=== PATIENT | female | born 1960 | race Caucasian/White ===

== ENCOUNTER 2020-12-11 18:22 | Observation (INO) | payer BC ==
[2020-12-11 19:47] LABS: SARS-CoV-2 NAA Rapid Test Not Detected (NotDetected)
[2020-12-11] MEDS ORDERED: Acetaminophen 325 MG TAB PO PRN (21:20)
[2020-12-11] MEDS ORDERED: Senokot S 8.6-50 MG TAB PO PRN (21:20)
[2020-12-12] MEDS: HYDROcodone/Acetaminophen 7.5/325 mg Tablet PO PRN ×2 (00:15→15:41)
[2020-12-12] MEDS: Cefepime 2 GM in Sodium Chloride 0.9% 100 ML IVPB SCH ×3 (00:15→15:41)
[2020-12-12] MEDS: Lactated Ringer's 1,000 ML IV SCH ×2 (00:16→15:41)
[2020-12-12 03:09] VITALS: BMI 21.1
[2020-12-12 05:49] LABS: #Basophils 0.1 10x3/uL (0.0-0.2); #Eosinphils 0.1 10x3/uL (0.0-0.5); #Monocytes 0.7 10x3/uL (0.0-1.1); #Neutrophils 10.3 10x3/uL (1.5-8.4); %Basophils 0.6 % (0.0-2.0); %Eosinophils 0.5 % (0.0-6.0); %Lymphocytes 12.9 % (18.0-47.0); %Monocytes 5.7 % (0.0-10.0); %Neutrophils 79.8 % (40.0-75.0); Hemoglobin 10.4 g/dL (12.0-15.5); Mean Corpuscular Hemoglobin 32.5 pg (27.0-33.0); Mean Corpuscular Volume 95.6 fl (81.6-98.3); Platelet Count 186 10x3/uL (150-450); RBC Distribution Width 13.2 % (11.5-14.5); White Blood Cell (WBC) Count 12.9 10x3/uL (3.5-10.5)
[2020-12-12 05:50] LABS: Anion Gap 12 mmol/L (10-20); BUN (Urea Nitrogen) 20 mg/dL (9.8-20.1); Calc. Creatinine Clearance 64 mL/min (70-130); Calcium 9.2 mg/dL (7.8-10.44); Carbon Dioxide 16 mmol/L (22-29); Chloride 115 mmol/L (98-107); Glucose 74 mg/dL (70-105); Magnesium 1.5 mg/dL (1.6-2.6); Sodium 139 mmol/L (136-145)
[2020-12-12] MEDS: Vancomycin HCl 750 MG in Sodium Chloride 0.9% 250 ML 250 ML IVPB SCH ×2 (08:27→21:25)
[2020-12-12] MEDS: Enoxaparin Sodium 40 MG/0.4 ML SYRINGE SC SCH (08:27)
[2020-12-12] MEDS ORDERED: Vancomycin HCl 1 GM in Sodium Chloride 0.9% 250 ML 300 ML IVPB SCH (17:00)
[2020-12-12] MEDS: cefTRIAXone\\ROCEPHIN 1 GM in Sodium Chloride 0.9% 100 ML IVPB SCH (18:00)
[2020-12-12] MEDS: Azithromycin 500 MG in Sodium Chloride 0.9% 250 ML 250 ML IVPB SCH (18:00)
[2020-12-12] MEDS: HYDROcodone/Acetaminophen 5/325 mg Tablet PO PRN (21:41)
[2020-12-13] MEDS ORDERED: Guaifenesin DM 100-10/5 ML UDCUP PO PRN (00:16)
[2020-12-13 01:32] LABS: Legionella Urinary Ag Negative (Negative); Strep pneumo Urine Ag NEGATIVE (NEGATIVE)
[2020-12-13 07:19] LABS: Vancomycin, Trough 11.2 ug/mL
[2020-12-13 07:21] LABS: #Eosinphils 0.3 10x3/uL (0.0-0.5); #Monocytes 0.6 10x3/uL (0.0-1.1); #Neutrophils 3.9 10x3/uL (1.5-8.4); %Basophils 0.7 % (0.0-2.0); %Eosinophils 5.4 % (0.0-6.0); %Lymphocytes 18.9 % (18.0-47.0); %Monocytes 10.4 % (0.0-10.0); %Neutrophils 64.3 % (40.0-75.0); Hemoglobin 10.1 g/dL (12.0-15.5); Mean Corpuscular HGB CONC 34.4 g/dL (32.0-36.0); Mean Corpuscular Hemoglobin 32.4 pg (27.0-33.0); Mean Corpuscular Volume 94.2 fl (81.6-98.3); Mean Platelet Volume 9.9 fl (7.4-10.4); Platelet Count 152 10x3/uL (150-450); RBC Distribution Width 13.2 % (11.5-14.5); Red Blood Cell (RBC) Count 3.12 10x6/uL (3.90-5.03); White Blood Cell (WBC) Count 6.1 10x3/uL (3.5-10.5)
[2020-12-13] MEDS: Vancomycin HCl 750 MG in Sodium Chloride 0.9% 250 ML 250 ML IVPB SCH (07:24)
[2020-12-13] MEDS: Enoxaparin Sodium 40 MG/0.4 ML SYRINGE SC SCH (07:24)
[2020-12-13 07:25] LABS: ALT (SGPT) 15 U/L (8-55); AST (SGOT) 18 U/L (5-34); Albumin 3.4 g/dL (3.5-5.0); Alkaline Phosphatase 66 U/L (40-110); Anion Gap 13 mmol/L (10-20); BUN (Urea Nitrogen) 12 mg/dL (9.8-20.1); Bilirubin, Total 0.6 mg/dL (0.2-1.2); Calc. Creatinine Clearance 77 mL/min (70-130); Calcium 9.4 mg/dL (7.8-10.44); Carbon Dioxide 19 mmol/L (22-29); Chloride 113 mmol/L (98-107); Globulin 2.3 g/dL (2.4-3.5); Glucose 85 mg/dL (70-105); Potassium 3.7 mmol/L (3.5-5.1); Protein, Total 5.7 g/dL (6.0-8.3); Sodium 141 mmol/L (136-145)
[2020-12-13] MEDS: HYDROcodone/Acetaminophen 5/325 mg Tablet PO PRN ×3 (07:38→23:45)
[2020-12-13] MEDS: Azithromycin 500 MG in Sodium Chloride 0.9% 250 ML 250 ML IVPB SCH (16:59)
[2020-12-13] MEDS: cefTRIAXone\\ROCEPHIN 1 GM in Sodium Chloride 0.9% 100 ML IVPB SCH (20:23)
[2020-12-13] MEDS: Vancomycin HCl 1 GM in Sodium Chloride 0.9% 250 ML 250 ML IVPB SCH (20:24)
[2020-12-14] MEDS: Vancomycin HCl 1 GM in Sodium Chloride 0.9% 250 ML 250 ML IVPB SCH (07:26)
[2020-12-14] MEDS: Enoxaparin Sodium 40 MG/0.4 ML SYRINGE SC SCH (07:26)
[2020-12-14] MEDS: HYDROcodone/Acetaminophen 5/325 mg Tablet PO PRN (07:33)
[2020-12-14 07:37] VITALS: BP 133/86; TEMP 98
== END 2020-12-14 10:12 | disposition home or self-care (01) ==
LOC: CSHERS 18:22 → CSHTELE 21:25 → INTOOBSV 21:25
PROVIDERS: ADMIT Student in an Organized Health Care Education/Training Program; ATTEND Family Medicine
DX: A41.9 Sepsis, unspecified organism (principal); I12.9 Hypertensive chronic kidney disease with stage 1 through stage 4 chronic kidney disease, or unspecified chronic kidney disease; N18.9 Chronic kidney disease, unspecified; Z20.822 Contact with and (suspected) exposure to COVID-19
CPT/HCPCS: 0240U; 36415; 71260; 74177; 80048; 80053; 80202; 83735; 84145; 85025; 87449; 87899; 93005; 96365; 96366; 96372; 96375; 96376; G0378; J0456; J0692; J0696; J1650; J1956; J3370; J3490; J7050; J7120

== ENCOUNTER 2021-09-29 14:52 | Inpatient (IN) | payer BC ==
[2021-09-29] MEDS ORDERED: Norepinephrine 8 MG/0.9% NS 250 ML ONE (14:53)
[2021-09-29 15:10] LABS: #Monocytes 0.5 10x3/uL (0.0-1.1); #Neutrophils 5.3 10x3/uL (1.5-8.4); %Basophils 0.1 % (0.0-2.0); %Eosinophils 0.3 % (0.0-6.0); %Lymphocytes 24.5 % (18.0-47.0); %Monocytes 6.7 % (0.0-10.0); Hemoglobin 10.6 g/dL (12.0-15.5); Mean Corpuscular HGB CONC 34.6 g/dL (32.0-36.0); Mean Corpuscular Hemoglobin 32.3 pg (27.0-33.0); Mean Corpuscular Volume 93.3 fl (81.6-98.3); Mean Platelet Volume 9.9 fl (7.4-10.4); Platelet Count 143 10x3/uL (150-450); RBC Distribution Width 13.9 % (11.5-14.5); Red Blood Cell (RBC) Count 3.28 10x6/uL (3.90-5.03); White Blood Cell (WBC) Count 7.8 10x3/uL (3.5-10.5)
[2021-09-29 15:25] LABS: Actual Bicarbonate (HCO3v) 10 mEq/L (22-28); Base Excess -16.3 mEq/L (-2.0 to +3.0); Calcium, Ionized (venous) 0.95 mmol/L (1.16-1.32); Chloride (VBG) 112 mmol/L (98-106); Hemoglobin (Hb) 11.5 g/dL (11.7-16.0); Potassium (VBG) 3.74 mmol/L (3.70-5.30); Puncture Site Other Site; RapidComm Collect By CBN; Sodium 133.2 mmol/L (133-146)
[2021-09-29 15:28] LABS: INR-International Normal Ratio 1.1; PTT 31.1 sec (22.0-33.0); Prothrombin Time 11.8 sec (9.5-12.1)
[2021-09-29 15:31] LABS: ALT (SGPT) 18 U/L (8-55); AST (SGOT) 23 U/L (5-34); Albumin 3.5 g/dL (3.5-5.0); Alkaline Phosphatase 81 U/L (40-110); Anion Gap 18 mmol/L (10-20); BUN (Urea Nitrogen) 55 mg/dL (9.8-20.1); Bilirubin, Total 0.3 mg/dL (0.2-1.2); Calc. Creatinine Clearance 0 mL/min (70-130); Calcium 6.8 mg/dL (7.8-10.44); Carbon Dioxide 10 mmol/L (22-29); Chloride 111 mmol/L (98-107); Globulin 2.3 g/dL (2.4-3.5); Glucose 158 mg/dL (70-105); Protein, Total 5.8 g/dL (6.0-8.3); Sodium 135 mmol/L (136-145)
[2021-09-29 15:32] LABS: CK (CPK) 157 U/L (29-168); CRP (Inflammatory) Less than 0.50 mg/dL (= or < 0.5); Magnesium 1.4 mg/dL (1.6-2.6)
[2021-09-29] MEDS ORDERED: Ondansetron ODT 4 MG TAB PO PRN (15:36)
[2021-09-29] MEDS ORDERED: Acetaminophen 650 MG Suppository PR PRN (15:36)
[2021-09-29 16:53] LABS: SARS-CoV-2 NAA Rapid Test DETECTED (NotDetected)
[2021-09-29] MEDS ORDERED: Piperacillin/Tazobactam 3.375 GM in Sodium Chloride 0.9% 100 ML IVPB SCH (17:00)
[2021-09-29] MEDS: Lactated Ringer's 1,000 ML IV SCH ×2 (17:28→22:47)
[2021-09-29] MEDS: Nicotine 14 MG PATCH TD SCH ×2 (17:28→18:20)
[2021-09-29] MEDS: Piperacillin/Tazobactam 3.375 GM in Sodium Chloride 0.9% 100 ML IVPB SCH (20:43)
[2021-09-29] MEDS: Heparin 5,000 UNITS/ML VIAL SC SCH (20:43)
[2021-09-29] MEDS ORDERED: Famotidine 20 MG TAB PO SCH (21:00)
[2021-09-29 22:15] LABS: Anion Gap 15 mmol/L (10-20); BUN (Urea Nitrogen) 43 mg/dL (9.8-20.1); Calc. Creatinine Clearance 27 mL/min (70-130); Calcium 7.4 mg/dL (7.8-10.44); Carbon Dioxide 14 mmol/L (22-29); Chloride 117 mmol/L (98-107); Glucose 88 mg/dL (70-105); Sodium 143 mmol/L (136-145)
[2021-09-29] MEDS ORDERED: Magnesium Sulfate 1 GM/2 ML VIAL IM SCH (22:45)
[2021-09-29] MEDS: Potassium Chloride 20 MEQ in Premix Bag 1 BAG IVPB SCH (22:59)
[2021-09-30] MEDS: Potassium Chloride 20 MEQ in Premix Bag 1 BAG IVPB SCH (01:02)
[2021-09-30 03:53] LABS: #Monocytes 0.4 10x3/uL (0.0-1.1); #Neutrophils 3.7 10x3/uL (1.5-8.4); %Basophils 0.4 % (0.0-2.0); %Eosinophils 0.6 % (0.0-6.0); %Monocytes 6.8 % (0.0-10.0); %Neutrophils 69.6 % (40.0-75.0); Mean Corpuscular HGB CONC 34.8 g/dL (32.0-36.0); Mean Corpuscular Hemoglobin 32.4 pg (27.0-33.0); Mean Corpuscular Volume 92.9 fl (81.6-98.3); Mean Platelet Volume 10.5 fl (7.4-10.4); Platelet Count 162 10x3/uL (150-450); RBC Distribution Width 13.7 % (11.5-14.5); Red Blood Cell (RBC) Count 3.09 10x6/uL (3.90-5.03); White Blood Cell (WBC) Count 5.3 10x3/uL (3.5-10.5)
[2021-09-30 04:05] LABS: ALT (SGPT) 44 U/L (8-55); AST (SGOT) 59 U/L (5-34); Albumin 3.3 g/dL (3.5-5.0); Alkaline Phosphatase 89 U/L (40-110); Anion Gap 15 mmol/L (10-20); BUN (Urea Nitrogen) 36 mg/dL (9.8-20.1); Bilirubin, Total 0.4 mg/dL (0.2-1.2); Calc. Creatinine Clearance 41 mL/min (70-130); Calcium 7.6 mg/dL (7.8-10.44); Carbon Dioxide 14 mmol/L (22-29); Chloride 119 mmol/L (98-107); Globulin 2.7 g/dL (2.4-3.5); Glucose 91 mg/dL (70-105); Potassium 3.8 mmol/L (3.5-5.1); Sodium 144 mmol/L (136-145)
[2021-09-30] MEDS: Lactated Ringer's 1,000 ML IV SCH (06:13)
[2021-09-30] MEDS: Heparin 5,000 UNITS/ML VIAL SC SCH ×3 (07:48→20:04)
[2021-09-30] MEDS: Piperacillin/Tazobactam 3.375 GM in Sodium Chloride 0.9% 100 ML IVPB SCH ×2 (07:49→20:04)
[2021-09-30] MEDS: Acetaminophen 325 MG TAB PO PRN (08:14)
[2021-09-30] MEDS ORDERED: Sodium Bicarbonate 150 MEQ in Dextrose 5% in Water 850 ML IV SCH (09:15)
[2021-09-30] MEDS ORDERED: Sodium Bicarbonate 150 MEQ in Dextrose 5% in Water 1,000 ML IV SCH (09:15)
[2021-09-30 13:01] VITALS: BMI 23.3
[2021-09-30] MEDS ORDERED: Cosyntropin 250 MCG VIAL SLOW IVP SCH (14:00)
[2021-09-30] MEDS: Nicotine 14 MG PATCH TD SCH (16:34)
[2021-09-30] MEDS: Ondansetron PF 4 MG/2 ML Vial IVP PRN (17:15)
[2021-09-30] MEDS ORDERED: Sodium Chloride 0.9% 100 ML ONE (20:02)
[2021-09-30] MEDS ORDERED: Piperacillin/Tazobactam 3.375 GM VIAL ONE (20:02)
[2021-09-30] MEDS: Famotidine 20 MG TAB PO SCH (20:03)
[2021-09-30] MEDS ORDERED: Promethazine HCl 12.5 MG in Sodium Chloride 0.9% 50 ML IVPB PRN (20:48)
[2021-09-30] MEDS ORDERED: Promethazine 25 MG TAB PO SCH (21:00)
[2021-10-01 04:48] LABS: Hemoglobin 9.1 g/dL (12.0-15.5); Mean Corpuscular HGB CONC 34.7 g/dL (32.0-36.0); Mean Corpuscular Hemoglobin 32.3 pg (27.0-33.0); Mean Corpuscular Volume 92.9 fl (81.6-98.3); Mean Platelet Volume 10.8 fl (7.4-10.4); Platelet Count 117 10x3/uL (150-450); RBC Distribution Width 13.6 % (11.5-14.5); Red Blood Cell (RBC) Count 2.82 10x6/uL (3.90-5.03); White Blood Cell (WBC) Count 2.6 10x3/uL (3.5-10.5)
[2021-10-01 04:58] LABS: ALT (SGPT) 29 U/L (8-55); AST (SGOT) 27 U/L (5-34); Albumin 3.2 g/dL (3.5-5.0); Alkaline Phosphatase 76 U/L (40-110); Anion Gap 12 mmol/L (10-20); BUN (Urea Nitrogen) 14 mg/dL (9.8-20.1); Bilirubin, Total 0.5 mg/dL (0.2-1.2); Calc. Creatinine Clearance 78 mL/min (70-130); Calcium 7.7 mg/dL (7.8-10.44); Carbon Dioxide 25 mmol/L (22-29); Chloride 112 mmol/L (98-107); Globulin 2.5 g/dL (2.4-3.5); Glucose 87 mg/dL (70-105); Potassium 3.1 mmol/L (3.5-5.1); Protein, Total 5.7 g/dL (6.0-8.3); Sodium 146 mmol/L (136-145)
[2021-10-01] MEDS ORDERED: Potassium Chloride 20 MEQ TAB PO SCH (05:30)
[2021-10-01] MEDS: Ondansetron PF 4 MG/2 ML Vial IVP PRN (05:35)
[2021-10-01 05:38] LABS: Magnesium 1.2 mg/dL (1.6-2.6)
[2021-10-01 05:42] LABS: Band 2 % (5-11); Eosinophils 1 % (0-10); Lymphocytes 58 % (21-51); Metamyelocyte 2 % (0-0); Monocytes 11 % (0-10); Neutrophil 26 % (42-75)
[2021-10-01 05:44] LABS: MDiff Complete? YES; RBC Morphology Normal
[2021-10-01 05:45] LABS: Platelet Morphology Comment Appears Decreased
[2021-10-01] MEDS: Acetaminophen 325 MG TAB PO PRN ×4 (05:52→20:45)
[2021-10-01] MEDS ORDERED: Magnesium 2 GM/50 ML(in water) 2 GM in Premix Bag 1 BAG IVPB SCH (06:00)
[2021-10-01] MEDS: Piperacillin/Tazobactam 3.375 GM in Sodium Chloride 0.9% 100 ML IVPB SCH ×2 (08:32→17:03)
[2021-10-01] MEDS: Heparin 5,000 UNITS/ML VIAL SC SCH ×2 (09:34→15:14)
[2021-10-01 15:32] LABS: Campy jejuni + coli by PCR Negative (Negative); STEC Shiga Toxin 1+2 Negative (Negative); Salmonella spp. by PCR Negative (Negative); Shigella spp + EIEC by PCR Negative (Negative)
[2021-10-01] MEDS: Nicotine 14 MG PATCH TD SCH (17:03)
[2021-10-01] MEDS: Famotidine 20 MG TAB PO SCH (20:23)
[2021-10-01] MEDS ORDERED: Ketorolac Tromethamine 30 MG/ML VIAL IVP SCH (21:15)
[2021-10-02 04:34] LABS: Hemoglobin 9.1 g/dL (12.0-15.5); Mean Corpuscular HGB CONC 33.8 g/dL (32.0-36.0); Mean Corpuscular Volume 94.7 fl (81.6-98.3); Mean Platelet Volume 10.7 fl (7.4-10.4); Platelet Count 118 10x3/uL (150-450); RBC Distribution Width 13.6 % (11.5-14.5); Red Blood Cell (RBC) Count 2.84 10x6/uL (3.90-5.03); White Blood Cell (WBC) Count 2.5 10x3/uL (3.5-10.5)
[2021-10-02 04:50] LABS: ALT (SGPT) 26 U/L (8-55); AST (SGOT) 30 U/L (5-34); Albumin 3.2 g/dL (3.5-5.0); Alkaline Phosphatase 70 U/L (40-110); Anion Gap 12 mmol/L (10-20); BUN (Urea Nitrogen) 14 mg/dL (9.8-20.1); Bilirubin, Total 0.5 mg/dL (0.2-1.2); Calc. Creatinine Clearance 57 mL/min (70-130); Calcium 8.1 mg/dL (7.8-10.44); Carbon Dioxide 23 mmol/L (22-29); Chloride 112 mmol/L (98-107); Globulin 2.5 g/dL (2.4-3.5); Glucose 83 mg/dL (70-105); Potassium 3.7 mmol/L (3.5-5.1); Protein, Total 5.7 g/dL (6.0-8.3); Sodium 143 mmol/L (136-145)
[2021-10-02 06:16] LABS: MDiff Complete? YES
[2021-10-02 06:17] LABS: Platelet Morphology Comment Appears Decreased; RBC Morphology Normal
[2021-10-02 06:20] LABS: Band 3 % (5-11); Eosinophils 2 % (0-10); Lymphocytes 45 % (21-51); Monocytes 13 % (0-10); Neutrophil 36 % (42-75)
[2021-10-02] MEDS ORDERED: Enoxaparin Sodium 40 MG/0.4 ML SYRINGE SC SCH (09:00)
[2021-10-02 09:12] VITALS: TEMP 97.1
[2021-10-02] MEDS: Ondansetron PF 4 MG/2 ML Vial IVP PRN (11:52)
[2021-10-02] MEDS ORDERED: Scopolamine 1.5 mg/72 hour Patch TD SCH (12:00)
[2021-10-02 12:01] VITALS: BP 153/103
[2021-10-02] MEDS ORDERED: Famotidine 20 MG TAB PO SCH (21:00)
[2021-10-02 23:28] LABS: Campy jejuni + coli by PCR Negative (Negative); STEC Shiga Toxin 1+2 Negative (Negative); Salmonella spp. by PCR Negative (Negative); Shigella spp + EIEC by PCR Negative (Negative)
== END 2021-10-02 14:05 | disposition home or self-care (01) | DRG 177 ==
LOC: CSHERS 14:52 → CSHICU 16:04
PROVIDERS: ADMIT Family Medicine; ATTEND Internal Medicine
PROC: 8E0ZXY6 Isolation (ICD-10-PCS; principal; 2021-09-29)
DX: U07.1 COVID-19 (principal); R57.1 Hypovolemic shock; N17.9 Acute kidney failure, unspecified; K50.90 Crohn's disease, unspecified, without complications; E87.1 Hypo-osmolality and hyponatremia; E87.0 Hyperosmolality and hypernatremia; E87.2 Acidosis; K52.9 Noninfective gastroenteritis and colitis, unspecified; F17.210 Nicotine dependence, cigarettes, uncomplicated; I95.9 Hypotension, unspecified; N18.2 Chronic kidney disease, stage 2 (mild); I12.9 Hypertensive chronic kidney disease with stage 1 through stage 4 chronic kidney disease, or unspecified chronic kidney disease; E83.51 Hypocalcemia; E83.42 Hypomagnesemia; E88.09 Other disorders of plasma-protein metabolism, not elsewhere classified; D63.1 Anemia in chronic kidney disease; Z98.890 Other specified postprocedural states; Z79.2 Long term (current) use of antibiotics; Z90.49 Acquired absence of other specified parts of digestive tract; Z79.899 Other long term (current) drug therapy; Z82.49 Family history of ischemic heart disease and other diseases of the circulatory system; Z84.89 Family history of other specified conditions; Z71.6 Tobacco abuse counseling
CPT/HCPCS: 36415; 36416; 71045; 80053; 80400; 82533; 82550; 82805; 83605; 83630; 83735; 83880; 84145; 84443; 85025; 85610; 85730; 86140; 87040; 87086; 87505; 93005; 94760; 96365; J0834; J1644; J1885; J2405; J2543; J3475; J3480; J3490; J7070; J7120; Q0169